=== PATIENT | male | born 1960 | race Caucasian/White ===

== ENCOUNTER 2020-05-17 08:59 | Inpatient (IN) ==
[2020-05-17 10:24] LABS: Basophils % 0.2 % (0.0-0.8); Eosinophils # 0.1 10*3/uL (0.0-0.87); Eosinophils % 0.8 % (0.00-10.9); Hematocrit 37.5 VOL% (42.0-52.0); Hemoglobin 12.1 GM/DL (14.0-18.0); Immature Granulocytes % 0.3 %; Immature Granulocytes Absolute 0.04 #; Lymphocytes # 1.4 10*3/uL (1.4-4.0); Lymphocytes % 9.7 % (21.2-54.2); Mean Corpuscular HGB Conc 32.3 GM/DL (32-36); Monocytes % 6.1 % (1.7-12.7); Neutrophils % 82.9 % (38.7-73.9); Platelet Count 423 T/CUMM (130-400); Red Blood Count 4.26 MC/CUMM (3.8-5.5); Red Cell Distribution Width 14.8 % (9.3-17.3); White Blood Count 14.3 T/CUMM (4-12)
[2020-05-17 10:40] LABS: Bilirubin,Total 0.4 MG/DL (0.2-1.0); Calcium 9.3 MG/DL (8.5-10.1); Osmolality,Calculated 291.8 MOS/KG (273-304); Total Protein 7.2 G/DL (6.4-8.3)
[2020-05-17 10:45] LABS: Apearance,Urine Slightly Hazy (Clear); Bilirubin,Urine Negative (Negative); Blood, Urine Small mg/dL (Negative); Glucose,Urine (UA) Negative (Negative); Ketones,Urine Negative (Negative); Mucus,Urine Occasional /LPF (Occasional); Nitrite,Urine Positive (Negative); Protein,Urine Negative; RBC,Urine 16 /HPF (0-4); Urine Color Yellow (Yellow); Urine Urobilinogen < 2.0 EU/DL (0.2-1.0); WBC,Urine 64 /HPF (0-6)
[2020-05-17] MEDS ORDERED: PIPERACILLIN/TAZOBACTAM 3,375 MG in SODIUM CHLORIDE 0.9% 100 ML IV STA (11:12)
[2020-05-17] MEDS ORDERED: GLUCAGON 1 MG VIAL IM PRN (11:15)
[2020-05-17] MEDS ORDERED: DEXTROSE 50% 25 GM/50 ML VIAL IV PRN (11:15)
[2020-05-17] MEDS ORDERED: ONDANSETRON 4 MG/2 ML VIAL IV PRN (11:20)
[2020-05-17] MEDS ORDERED: ACETAMINOPHEN 325 MG TABLET PO PRN (11:20)
[2020-05-17] MEDS ORDERED: CLOTRIMAZOLE 1% CREAM 15 GM TUBE TOP PRN (14:41)
[2020-05-17] MEDS: METHOCARBAMOL 500 MG TABLET PO SCH ×2 (15:44→21:08)
[2020-05-17] MEDS: SODIUM CHLORIDE 0.9% 1,000 ML IV SCH (16:46)
[2020-05-17] MEDS: INSULIN LISPRO 100 UNIT/ML SUBCUT SCH ×2 (16:49→21:08)
[2020-05-17] MEDS: PIPERACILLIN/TAZOBACTAM 3,375 MG in SODIUM CHLORIDE 0.9% 100 ML IV SCH (21:07)
[2020-05-17] MEDS: carvediloL 6.25 MG TABLET PO SCH (21:08)
[2020-05-18] MEDS: PIPERACILLIN/TAZOBACTAM 3,375 MG in SODIUM CHLORIDE 0.9% 100 ML IV SCH ×3 (04:35→21:05)
[2020-05-18 05:46] LABS: Basophils # 0.1 10*3/uL (0.0-0.2); Basophils % 0.3 % (0.0-0.8); Eosinophils # 0.3 10*3/uL (0.0-0.87); Eosinophils % 2.2 % (0.00-10.9); Hematocrit 33.2 VOL% (42.0-52.0); Hemoglobin 10.7 GM/DL (14.0-18.0); Immature Granulocytes % 0.4 %; Immature Granulocytes Absolute 0.06 #; Lymphocytes # 1.6 10*3/uL (1.4-4.0); Mean Corpuscular HGB Conc 32.2 GM/DL (32-36); Mean Corpuscular Volume 87.4 FL (87-102); Mean Platelet Volume 9.5 FL (9.6-12.0); Monocytes % 7.8 % (1.7-12.7); Neutrophils % 78.3 % (38.7-73.9); Platelet Count 369 T/CUMM (130-400); Red Cell Distribution Width 14.8 % (9.3-17.3); White Blood Count 14.7 T/CUMM (4-12)
[2020-05-18 06:23] LABS: Calcium 9.1 MG/DL (8.5-10.1); Osmolality,Calculated 284.1 MOS/KG (273-304); Risk Ratio 2.29; Thyroid Stimulating Hormone 0.984 uIU/ml (0.358-3.74); VLDL CHOLESTEROL 15.6 MG/DL
[2020-05-18] MEDS: INSULIN LISPRO 100 UNIT/ML SUBCUT SCH ×4 (07:56→21:05)
[2020-05-18] MEDS: METHOCARBAMOL 500 MG TABLET PO SCH ×3 (10:08→21:05)
[2020-05-18] MEDS: PANTOPRAZOLE 40 MG TABLET PO SCH (10:08)
[2020-05-18] MEDS: ATORVASTATIN 40 MG TABLET PO SCH (10:09)
[2020-05-18] MEDS: ASPIRIN EC 81 MG TABLET PO SCH (10:09)
[2020-05-18] MEDS: LOSARTAN 50 MG TABLET PO SCH (10:09)
[2020-05-18] MEDS: carvediloL 6.25 MG TABLET PO SCH ×2 (10:09→21:05)
[2020-05-18] MEDS: CLOPIDOGREL 75 MG TABLET PO SCH (10:09)
[2020-05-18] MEDS: amLODIPine 10 MG TABLET PO SCH (10:10)
[2020-05-18] MEDS: SKIN HEALING OINT (AQUAPHOR) 50 GM TUBE TOP SCH (14:05)
[2020-05-18] MEDS: SODIUM CHLORIDE 0.9% 1,000 ML IV SCH ×2 (14:06→18:10)
[2020-05-19] MEDS: PIPERACILLIN/TAZOBACTAM 3,375 MG in SODIUM CHLORIDE 0.9% 100 ML IV SCH ×3 (04:54→21:56)
[2020-05-19 05:13] LABS: Basophils # 0.1 10*3/uL (0.0-0.2); Basophils % 0.6 % (0.0-0.8); Eosinophils # 0.6 10*3/uL (0.0-0.87); Eosinophils % 5.7 % (0.00-10.9); Hematocrit 33.2 VOL% (42.0-52.0); Hemoglobin 10.8 GM/DL (14.0-18.0); Immature Granulocytes % 0.4 %; Immature Granulocytes Absolute 0.04 #; Lymphocytes # 1.9 10*3/uL (1.4-4.0); Lymphocytes % 17.8 % (21.2-54.2); Mean Corpuscular HGB Conc 32.5 GM/DL (32-36); Mean Corpuscular Volume 88.8 FL (87-102); Mean Platelet Volume 9.3 FL (9.6-12.0); Monocytes % 10.6 % (1.7-12.7); Neutrophils % 64.9 % (38.7-73.9); Platelet Count 360 T/CUMM (130-400); Red Blood Count 3.74 MC/CUMM (3.8-5.5); Red Cell Distribution Width 14.6 % (9.3-17.3); White Blood Count 10.5 T/CUMM (4-12)
[2020-05-19 05:25] LABS: Calcium 8.9 MG/DL (8.5-10.1); Osmolality,Calculated 285.1 MOS/KG (273-304)
[2020-05-19 05:26] LABS: Hypochromasia 1+; Microcytosis Slight; Platelet Estimate Adequate
[2020-05-19] MEDS: SODIUM CHLORIDE 0.9% 1,000 ML IV SCH ×2 (07:30→21:56)
[2020-05-19] MEDS: INSULIN LISPRO 100 UNIT/ML SUBCUT SCH ×4 (07:56→21:58)
[2020-05-19] MEDS: METHOCARBAMOL 500 MG TABLET PO SCH ×3 (08:49→21:57)
[2020-05-19] MEDS: PANTOPRAZOLE 40 MG TABLET PO SCH (08:49)
[2020-05-19] MEDS: SKIN HEALING OINT (AQUAPHOR) 50 GM TUBE TOP SCH (08:49)
[2020-05-19] MEDS: ASPIRIN EC 81 MG TABLET PO SCH (08:49)
[2020-05-19] MEDS: CLOPIDOGREL 75 MG TABLET PO SCH (08:50)
[2020-05-19] MEDS: carvediloL 6.25 MG TABLET PO SCH ×2 (08:58→21:58)
[2020-05-19] MEDS: LOSARTAN 50 MG TABLET PO SCH (08:58)
[2020-05-19] MEDS: amLODIPine 10 MG TABLET PO SCH (08:59)
[2020-05-19] MEDS: ATORVASTATIN 40 MG TABLET PO SCH (08:59)
[2020-05-20] MEDS: PIPERACILLIN/TAZOBACTAM 3,375 MG in SODIUM CHLORIDE 0.9% 100 ML IV SCH (05:32)
[2020-05-20 06:19] LABS: Basophils # 0.1 10*3/uL (0.0-0.2); Basophils % 0.6 % (0.0-0.8); Eosinophils # 0.7 10*3/uL (0.0-0.87); Eosinophils % 5.9 % (0.00-10.9); Hematocrit 34.3 VOL% (42.0-52.0); Hemoglobin 11.1 GM/DL (14.0-18.0); Immature Granulocytes % 0.4 %; Immature Granulocytes Absolute 0.05 #; Lymphocytes % 16.2 % (21.2-54.2); Mean Corpuscular HGB Conc 32.4 GM/DL (32-36); Mean Corpuscular Volume 88.6 FL (87-102); Mean Platelet Volume 9.5 FL (9.6-12.0); Monocytes % 9.1 % (1.7-12.7); Neutrophils % 67.8 % (38.7-73.9); Platelet Count 391 T/CUMM (130-400); Red Blood Count 3.87 MC/CUMM (3.8-5.5); Red Cell Distribution Width 14.6 % (9.3-17.3); White Blood Count 12.3 T/CUMM (4-12)
[2020-05-20 06:41] LABS: Calcium 8.8 MG/DL (8.5-10.1); Osmolality,Calculated 285.1 MOS/KG (273-304)
[2020-05-20] MEDS: INSULIN LISPRO 100 UNIT/ML SUBCUT SCH ×4 (08:33→20:45)
[2020-05-20] MEDS ORDERED: cefTRIAXone 1,000 MG VIAL IM SCH (09:00)
[2020-05-20] MEDS: amLODIPine 10 MG TABLET PO SCH (09:17)
[2020-05-20] MEDS: carvediloL 6.25 MG TABLET PO SCH ×2 (09:17→20:45)
[2020-05-20] MEDS: PANTOPRAZOLE 40 MG TABLET PO SCH (09:17)
[2020-05-20] MEDS: CLOPIDOGREL 75 MG TABLET PO SCH (09:17)
[2020-05-20] MEDS: ASPIRIN EC 81 MG TABLET PO SCH (09:17)
[2020-05-20] MEDS: METHOCARBAMOL 500 MG TABLET PO SCH ×3 (09:17→20:45)
[2020-05-20] MEDS: SKIN HEALING OINT (AQUAPHOR) 50 GM TUBE TOP SCH (09:17)
[2020-05-20] MEDS: LOSARTAN 50 MG TABLET PO SCH (09:17)
[2020-05-20] MEDS: ATORVASTATIN 40 MG TABLET PO SCH (09:17)
[2020-05-20] MEDS: cefTRIAXone 1,000 MG in SYRINGE 1 EACH IV SCH (09:48)
[2020-05-20] MEDS: SODIUM CHLORIDE 0.9% 1,000 ML IV SCH (09:58)
[2020-05-21] MEDS: SODIUM CHLORIDE 0.9% 1,000 ML IV SCH ×2 (05:20→18:41)
[2020-05-21 05:53] LABS: Basophils % 0.4 % (0.0-0.8); Eosinophils # 0.6 10*3/uL (0.0-0.87); Eosinophils % 5.6 % (0.00-10.9); Hematocrit 33.1 VOL% (42.0-52.0); Immature Granulocytes % 0.2 %; Immature Granulocytes Absolute 0.02 #; Lymphocytes # 1.9 10*3/uL (1.4-4.0); Lymphocytes % 16.7 % (21.2-54.2); Mean Corpuscular HGB Conc 33.2 GM/DL (32-36); Mean Corpuscular Volume 87.1 FL (87-102); Mean Platelet Volume 9.3 FL (9.6-12.0); Monocytes % 8.4 % (1.7-12.7); Neutrophils % 68.7 % (38.7-73.9); Platelet Count 363 T/CUMM (130-400); Red Cell Distribution Width 14.6 % (9.3-17.3); White Blood Count 11.1 T/CUMM (4-12)
[2020-05-21 06:10] LABS: Calcium 8.9 MG/DL (8.5-10.1)
[2020-05-21] MEDS: INSULIN LISPRO 100 UNIT/ML SUBCUT SCH ×4 (08:48→20:50)
[2020-05-21] MEDS: ATORVASTATIN 40 MG TABLET PO SCH (09:37)
[2020-05-21] MEDS: SKIN HEALING OINT (AQUAPHOR) 50 GM TUBE TOP SCH (09:37)
[2020-05-21] MEDS: carvediloL 6.25 MG TABLET PO SCH ×2 (09:37→20:51)
[2020-05-21] MEDS: LOSARTAN 50 MG TABLET PO SCH (09:37)
[2020-05-21] MEDS: ASPIRIN EC 81 MG TABLET PO SCH (09:37)
[2020-05-21] MEDS: amLODIPine 10 MG TABLET PO SCH (09:38)
[2020-05-21] MEDS: PANTOPRAZOLE 40 MG TABLET PO SCH (09:38)
[2020-05-21] MEDS: CLOPIDOGREL 75 MG TABLET PO SCH (09:38)
[2020-05-21] MEDS: cefTRIAXone 1,000 MG in SYRINGE 1 EACH IV SCH (09:39)
[2020-05-21] MEDS: METHOCARBAMOL 500 MG TABLET PO SCH ×3 (09:39→20:51)
[2020-05-22 06:11] LABS: Basophils # 0.1 10*3/uL (0.0-0.2); Basophils % 0.7 % (0.0-0.8); Eosinophils # 0.7 10*3/uL (0.0-0.87); Eosinophils % 6.8 % (0.00-10.9); Hematocrit 35.1 VOL% (42.0-52.0); Hemoglobin 11.2 GM/DL (14.0-18.0); Immature Granulocytes % 0.4 %; Immature Granulocytes Absolute 0.04 #; Lymphocytes # 2.2 10*3/uL (1.4-4.0); Lymphocytes % 20.1 % (21.2-54.2); Mean Corpuscular HGB Conc 31.9 GM/DL (32-36); Mean Corpuscular Volume 87.5 FL (87-102); Mean Platelet Volume 9.3 FL (9.6-12.0); Monocytes % 8.4 % (1.7-12.7); Neutrophils % 63.6 % (38.7-73.9); Platelet Count 374 T/CUMM (130-400); Red Blood Count 4.01 MC/CUMM (3.8-5.5); Red Cell Distribution Width 14.5 % (9.3-17.3); White Blood Count 10.8 T/CUMM (4-12)
[2020-05-22 06:26] LABS: Calcium 8.7 MG/DL (8.5-10.1); Osmolality,Calculated 284.1 MOS/KG (273-304)
[2020-05-22] MEDS: SODIUM CHLORIDE 0.9% 1,000 ML IV SCH ×2 (06:32→15:37)
[2020-05-22] MEDS: METHOCARBAMOL 500 MG TABLET PO SCH ×3 (08:33→21:33)
[2020-05-22] MEDS: amLODIPine 10 MG TABLET PO SCH (08:33)
[2020-05-22] MEDS: ASPIRIN EC 81 MG TABLET PO SCH (08:34)
[2020-05-22] MEDS: ATORVASTATIN 40 MG TABLET PO SCH (08:34)
[2020-05-22] MEDS: PANTOPRAZOLE 40 MG TABLET PO SCH (08:34)
[2020-05-22] MEDS: carvediloL 6.25 MG TABLET PO SCH ×2 (08:34→21:33)
[2020-05-22] MEDS: LOSARTAN 50 MG TABLET PO SCH (08:34)
[2020-05-22] MEDS: INSULIN LISPRO 100 UNIT/ML SUBCUT SCH ×4 (08:34→21:33)
[2020-05-22] MEDS: CLOPIDOGREL 75 MG TABLET PO SCH (08:34)
[2020-05-22] MEDS: SKIN HEALING OINT (AQUAPHOR) 50 GM TUBE TOP SCH (08:41)
[2020-05-22] MEDS: cefTRIAXone 1,000 MG in SYRINGE 1 EACH IV SCH (09:05)
[2020-05-22 10:43] LABS: Hemoglobin 11.3 GM/DL (14.0-18.0)
[2020-05-23 06:29] LABS: Basophils # 0.1 10*3/uL (0.0-0.2); Basophils % 0.6 % (0.0-0.8); Eosinophils # 0.6 10*3/uL (0.0-0.87); Eosinophils % 6.5 % (0.00-10.9); Hematocrit 33.4 VOL% (42.0-52.0); Hemoglobin 10.9 GM/DL (14.0-18.0); Immature Granulocytes % 0.5 %; Immature Granulocytes Absolute 0.05 #; Lymphocytes # 1.8 10*3/uL (1.4-4.0); Lymphocytes % 18.5 % (21.2-54.2); Mean Corpuscular HGB Conc 32.6 GM/DL (32-36); Mean Corpuscular Volume 87.4 FL (87-102); Mean Platelet Volume 9.4 FL (9.6-12.0); Monocytes % 7.6 % (1.7-12.7); Neutrophils % 66.3 % (38.7-73.9); Platelet Count 364 T/CUMM (130-400); Red Blood Count 3.82 MC/CUMM (3.8-5.5); Red Cell Distribution Width 14.5 % (9.3-17.3); White Blood Count 9.9 T/CUMM (4-12)
[2020-05-23] MEDS: INSULIN LISPRO 100 UNIT/ML SUBCUT SCH ×4 (08:46→20:55)
[2020-05-23] MEDS: carvediloL 6.25 MG TABLET PO SCH ×2 (10:25→20:56)
[2020-05-23] MEDS: amLODIPine 10 MG TABLET PO SCH (10:25)
[2020-05-23] MEDS: ATORVASTATIN 40 MG TABLET PO SCH (10:25)
[2020-05-23] MEDS: METHOCARBAMOL 500 MG TABLET PO SCH ×3 (10:25→20:56)
[2020-05-23] MEDS: SKIN HEALING OINT (AQUAPHOR) 50 GM TUBE TOP SCH (10:26)
[2020-05-23] MEDS: LOSARTAN 50 MG TABLET PO SCH (10:26)
[2020-05-23] MEDS: PANTOPRAZOLE 40 MG TABLET PO SCH (10:26)
[2020-05-23] MEDS: CLOPIDOGREL 75 MG TABLET PO SCH (10:26)
[2020-05-23] MEDS: cefTRIAXone 1,000 MG in SYRINGE 1 EACH IV SCH (12:40)
[2020-05-23] MEDS ORDERED: LIDOCAINE 2% TOP JELLY 20 ML VIAL INTRAURETH ONE (14:30)
[2020-05-23 14:47] LABS: Hematocrit 33.8 VOL% (42.0-52.0)
[2020-05-23] MEDS ORDERED: SODIUM CHLORIDE 0.9% 1,000 ML IV PRN (14:53)
[2020-05-23] MEDS: TAMSULOSIN 0.4 MG CAPSULE PO SCH (17:43)
[2020-05-24 04:43] LABS: Basophils # 0.1 10*3/uL (0.0-0.2); Basophils % 0.6 % (0.0-0.8); Eosinophils # 0.6 10*3/uL (0.0-0.87); Eosinophils % 5.1 % (0.00-10.9); Hematocrit 37.1 VOL% (42.0-52.0); Hemoglobin 12.2 GM/DL (14.0-18.0); Immature Granulocytes % 0.3 %; Immature Granulocytes Absolute 0.04 #; Lymphocytes # 2.1 10*3/uL (1.4-4.0); Lymphocytes % 16.5 % (21.2-54.2); Mean Corpuscular HGB Conc 32.9 GM/DL (32-36); Mean Corpuscular Volume 87.9 FL (87-102); Mean Platelet Volume 9.6 FL (9.6-12.0); Monocytes % 7.7 % (1.7-12.7); Neutrophils % 69.8 % (38.7-73.9); Platelet Count 338 T/CUMM (130-400); Red Blood Count 4.22 MC/CUMM (3.8-5.5); Red Cell Distribution Width 14.6 % (9.3-17.3); White Blood Count 12.5 T/CUMM (4-12)
[2020-05-24 05:04] LABS: Calcium 8.8 MG/DL (8.5-10.1); Osmolality,Calculated 284.3 MOS/KG (273-304)
[2020-05-24] MEDS: INSULIN LISPRO 100 UNIT/ML SUBCUT SCH ×3 (08:09→16:53)
[2020-05-24 11:36] VITALS: BP 172/68
[2020-05-24] MEDS: cefTRIAXone 1,000 MG in SYRINGE 1 EACH IV SCH (13:09)
[2020-05-24] MEDS: CLOPIDOGREL 75 MG TABLET PO SCH (13:11)
[2020-05-24] MEDS: METHOCARBAMOL 500 MG TABLET PO SCH ×2 (13:11→16:43)
[2020-05-24] MEDS: amLODIPine 10 MG TABLET PO SCH (13:11)
[2020-05-24] MEDS: carvediloL 6.25 MG TABLET PO SCH (13:11)
[2020-05-24] MEDS: LOSARTAN 50 MG TABLET PO SCH (13:11)
[2020-05-24] MEDS: ATORVASTATIN 40 MG TABLET PO SCH (13:11)
[2020-05-24] MEDS: PANTOPRAZOLE 40 MG TABLET PO SCH (13:11)
[2020-05-24] MEDS: TAMSULOSIN 0.4 MG CAPSULE PO SCH (13:12)
[2020-05-24] MEDS: SKIN HEALING OINT (AQUAPHOR) 50 GM TUBE TOP SCH (13:12)
== END 2020-05-24 17:38 | DRG 463 ==
LOC: EDBD → EDUNIT# → N.EDINP 08:59 → N.ED 08:59 → SUATTDRO 11:48 → N.3E 13:41 → SUATTDRO 05-20 14:57
PROVIDERS: ADMIT Internal Medicine; ATTEND Internal Medicine